=== PATIENT | female | born 1985 | race Two or more races ===

== ENCOUNTER 2025-07-25 09:53 | Outpatient (AMB) | payer OTHER, SELFPAY ==
--- OUTSIDE RECORDS SUMMARY | 2021-08-03 | XMS_ITS | Encounter Summary ---
Author Organization [facility] Address [address] [facility] [place] [address] Phone Care Team Providers Care Ironworker Helper Shop Name Role Phone Mary Daly MD Primary Care Provider Unava ilable Encounter Details Date Type Department Care Team (Late st Contact Info) Description 08/03/2021 Hospital Encounter [facility] OUTSIDE [address] [place] [id number] Lynne Cantu MD [address] [place] [address] [email or web address] Social History Tobacco Use Types Packs/Day Years Used Date Smoking Tobacco: Former Smokeless Tobacco: Former Quit: 04/12/2021 Alcohol Use Standard Drinks/Week Comments Yes 0 (1 standard drink = 0.6 oz pur e alcohol) OCCASIONALLY Education Answer Date Recorded Are you interested in more education? Not on vianca e 03/12/2023 Are you concerned about learning? Not on file 03/12/2023 No 03/12/2023 No 03/12/2023 Digital Access Answer Date Recorded No 04/09/2023 No 04/09/2023 Reliable internet access at home? Not on file 04/09/2023 Device with a working camera? Not on file Comments No Sex and Gender Information Value Date Recorded Sex Assigned at Not on file Legal Sex Female 10:59 AM EDT Gender Identity Not on file Sexual Orientation Not on file documented as of this encounter Plan of Treatment Not on file documented as of this encounter Procedures Procedure Name Priority Date/Time Associated Diagnosis Comments CT FACE OUTSIDE (NO INTERPRETATION) Routine 08/03/2021 12:00 AM EDT documented in this encounter Results * CT Face Outside (No Interpretation) (08/03/2021 12:00 AM EDT) Narrative [facility] INTERFACES - 12/09/2021 11:45 AM EST This study is for PACS storage only and not for interpretation. us Lynne Cantu MD IMG OUTSIDE IMAGING W/OUT I NTERPRETATION Final Result [facility] INTERFACES documented in this encounter Visit Diagnoses Not on filedocumented in this encounter Care Teams Ironworker Helper Shop Relationship Specialty Start Date End Date Mary Daly MD PCP - General 05/08/21 08/30/21 documented as of this encounter Additional Source Comments The information contained in this document represents components of the legal health record. It is not the complete legal health record.[facility]
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
--- OUTSIDE RECORDS SUMMARY | 2025-07-25 11:44 | XMS_ITS | Encounter Summary ---
Author Organization [facility] Address [address] [place] [address] Phone Care Team Providers Care Diplomatic Officer Name Role Phone Matti Avina MD Primary Care Provider [phone] Encounter Details Date Type Department Care Team (Late st Contact Info) Description 05/21/2022 Procedure Pass [facility]TH [facility] PERIOP DEPT [address] [place] [address] Social History Tobacco Use Types Packs/Day Years Used Date Smoking Tobacco: Former Smokeless Tobacco: Former Quit: 04/12/2021 Alcohol Use Standard Drinks/Week Comments Yes 0 (1 standard drink = 0.6 oz pur e alcohol) OCCASIONALLY Comments No Sex and Gender Information Value Date Recorded Sex Assigned at Not on file Legal Sex Female 10:59 AM EDT Gender Identity Not on file Sexual Orientation Not on file documented as of this encounter Plan of Treatment Not on file documented as of this encounter Visit Diagnoses Not on filedocumented in this encounter Care Teams Diplomatic Officer Relationship Specialty Start Date End Date Matti Avina MD [address] [facility] [address] [place] [address] PCP - General Internal Medicine 08/31/21 documented as of this encounter Additional Source Comments The information contained in this document represents components of the legal health record. It is not the complete legal health record.[facility]
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
--- OUTSIDE RECORDS SUMMARY | 2025-07-25 11:44 | XMS_ITS ---
Author Name [facility] Organization Unknown Care Team Organization Name Specialty Phone Email Start Date End Da te [facility] PIPO MULLER Primary Care 09/21/2022 07/02/20 24
--- OUTSIDE RECORDS SUMMARY | 2025-07-25 11:45 | XMS_ITS | Encounter Summary ---
Author Organization [facility] Address [address] [address] [place] [address] Phone Care Team Providers Care Trimmer Press Clippings Name Role Phone Matti Avina MD Primary Care Provider [phone] Encounter Details Date Type Department Care Team (Late st Contact Info) Description 12/08/2021 Procedure Pass [facility] Imaging - MRI, [address] [address] Social History Tobacco Use Types Packs/Day Years Used Date Smoking Tobacco: Never Assessed Comments Unknown Sex and Gender Information Value Date Recorded Sex Assigned at Not on file Legal Sex Female 10:59 AM EDT Gender Identity Not on file Sexual Orientation Not on file documented as of this encounter Plan of Treatment Not on file documented as of this encounter Visit Diagnoses Not on filedocumented in this encounter Care Teams Trimmer Press Clippings Relationship Specialty Start Date End Date Matti Avina MD [address] [facility] [address] [place] [address] PCP - General Internal Medicine 08/31/21 documented as of this encounter Additional Source Comments The information contained in this document represents components of the legal health record. It is not the complete legal health record.[facility]
--- OUTSIDE RECORDS SUMMARY | 2025-07-25 11:45 | XMS_ITS | Clinical Summary ---
Author Organization [facility] Address [address] [place] [address] Care Team Providers Care Miller Helper Name Role Phone Mary Daly MD Primary Care Provider Unavaila ble Social History Tobacco Use Types Packs/Day Years Used Date Smoking Tobacco: Never Assessed Comments Unknown Sex and Gender Information Value Date Recorded Sex Assigned at Not on file Legal Sex Female 2:40 PM EDT Gender Identity Not on file Sexual Orientation Not on file Plan of Treatment Health Maintenance Due Date Last Done Comments Hepatitis B Vaccine (1 of 3 - 19+ 3-dose series) 2005 Influenza Vaccine (#1) 2025 Pneumococcal Vaccine: Peds ( 0 to 5 Years) and At-Risk Patients (6 to 49 Years) Aged Out No longer eligible b ased on patient's age to complete this topic Insurance [facility] [employer] Care Teams Miller Helper Relationship Specialty Start Date End Date Mary Daly MD PCP - General Pediatrics 07/29/21
--- OUTSIDE RECORDS SUMMARY | 2025-07-25 11:45 | XMS_ITS | Clinical Summary ---
Author Organization [facility] Address [address] [facility] [address] [place] [id number] Phone Care Team Providers Care Reinforcing Steel Worker Name Role Phone Matti Avina MD Primary Care Provider [phone] Allergies No known active allergies Medications acetaminophen (TYLENOL) 325 mg tablet Take 650 mg by mouth. 05/12/2021 Active Active Problems No known active problems Social History Tobacco Use Types Packs/Day Years [...] on file Sexual Orientation Not on file Last Filed Vital Signs Vital Sign Reading Time Taken Comments Blood Pressure 117/83 05/21/2022 11:41 AM EDT Pulse 53 05/21/2022 10:11 AM EDT Temperature 35.8 C (96.5 F) 05/21/2022 9:41 AM EDT Respiratory Rate 22 05/21/2022 11:41 AM EDT Oxygen Saturation 98% 05/21/2022 11:41 AM EDT Inhaled Oxygen Concentration - - Weight 104.8 kg (231 lb) 05/21/2022 6:46 AM EDT Height 170.2 cm (5' 7 ) 05/21/2022 6:46 AM EDT Body Mass Index 36.18 05/21/2022 6:46 AM EDT Plan of Treatment Health Maintenance Due Date Last Done Comments DEPRESSION SCREENING 1998 SMOKING Hx and SMOKELESS TOB ACCO SCREENING 1999 HEPATITIS C SCREENING 2004 HIV ONE-TIME SCREENING (18-6 5 YEARS) 2004 PAP SMEAR 2007 Adult Td,Tdap Booster 06/05/2009 06/05/1999 INFLUENZA VACCINE (#1) 2025 COVID-19 VACCINE ( - 2023-2 5 season) 2025 HEPATITIS A VACCINES Aged Out No long er eligible based on patient's age to complete this topic HIB VACCINES Aged Out No longer eligi ble based on patient's age to complete this topic MENINGOCOCCAL VACCINES (ACWY) Aged Out No longer eligible based on patient's age to complete this topic MENINGOCOCCAL VACCINES (B) Aged Out N o longer eligible based on patient's age to complete this topic PNEUMOCOCCAL VACCINES (0-49 years) Aged Out No longer eligible based on patient's age to complete this topic Medical Devices Not on file Insurance [facility] [address] [place], [place] [address] [address] [address] [place] [address] [facility] [facility] [place] [address] [place] [address] [employer] [facility] [place] [id number] Care Teams Reinforcing Steel Worker Relationship Specialty Start Date End Date Matti Avina MD [address] [place] [address] [address] [place] [address] PCP - General Internal Medicine 08/31/21 Additional Source Comments The information contained in this document represents components of the legal health record. It is not the complete legal health record.[facility]
== END 2025-07-25 10:04 | disposition home or self-care (01) ==
LOC: HO.HSM 09:53
PROVIDERS: PCP Internal Medicine; Referring Provider Internal Medicine; Visit Provider Psychiatry & Neurology Neurology
DX: G40.309 Generalized idiopathic epilepsy and epileptic syndromes, not intractable, without status epilepticus (principal); G43.009 Migraine without aura, not intractable, without status migrainosus
CPT/HCPCS: 99214